=== PATIENT | male | born 1945 | race Caucasian/White ===

== ENCOUNTER 2024-06-10 12:06 | Day surgery (SDC) | payer MEDICARE, OTHER, SELFPAY ==
[2024-06-10] MEDS: LIDOCAINE 2% JELLY 20 ML UR (14:13)
[2024-06-10] MEDS: LIDOCAINE HCL 1% 100 MG/10 ML MDV INJ ×2 (14:15→14:30)
[2024-06-10] MEDS: BACITRACIN OINTMENT 28.4 GM TUBE 1 APPLIC TOPICAL (14:44)
--- NOTE | 2024-06-10 14:51 | P.URON_ITS ---
Urology Surgery Operative Note Operative Note Procedure Date: 06/10/24 Time Out Performed: yes Pre-op Diagnosis: 1. Elevated PSA 2. Abnormal MRI Post-op Diagnosis: same as pre-op Procedures performed: 1. MRI fusion prostate biopsy, transperineal approach 2. Ultrasound for needle prostate biopsy, transperineal approach 3. Transrectal ultrasound of prostate and seminal vesicles 4. Nerve block of prostate Anesthesia: local Primary Surgeon: Melany Underwood Complications: none Estimated blood loss (mL): 1 Findings: Dilated SVs. R peripheral zone mid-apex faint hypoechoic area - targeted. JOS benign. 74 g prostate volume from MRI fusion marking Specimens: 1. Right posterior medial (2 cores) 2. Right posterior lateral (2 cores) 3. Right base (2 cores) 4. Right anterior medial (2 cores) 5. Right anterior lateral (2 cores) 6. Left posterior medial (2 cores) 7. Left posterior lateral (2 cores) 8. Left base (2 cores) 9. Left anterior medial (2 cores) 10. Left anterior lateral (2 cores) 11. YANELIS - right peripheral zone mid-apex (4 cores) Indications for Procedures: 79 year old male with elevated PSA 8.5, 16.5% free on 03/05/24. MP-MRI prostate 05/19/24 showed PIRADS 5 lesion at right peripheral zone, mid-apex. Prostate volume 97 ml. After discussion of risks/benefits of management options and biopsy approaches, he elected to proceed with MRI fusion transperineal prostate biopsy under local. Risks were discussed to include but not limited to bleeding, pain, infection, damage to surrounding structures, hematuria, difficulty urinating, ecchymosis, swelling, injury from positioning, and need for additional procedures. Detailed description of Procedure: After informed consent was obtained, the patient was brought to the operating suite and transferred onto the operating table in supine position. Sequential compression devices were placed on bilateral lower extremities. He received the appropriate dose of preoperative oral antibiotics. He was positioned in the dorsal lithotomy position with scrotum secured out of the perineum with tape, and the appropriate pressure points padded, prepped and draped in the usual fashion for this procedure. An operative timeout was performed confirming the patient's identity, procedure and safety checks. A digital rectal exam was performed noting findings as above. The [employer] MRI fusion biopsy system was set up over the patient's pelvis for transperineal approach of prostate biopsy. Lidocaine gel was inserted per rectum. A well lubricated biplane transrectal ultrasound probe was inserted into the rectum and the prostate was aligned. The gland was visualized fully in axial and sagittal views to allow for identification of anatomy and location of the urethra as noted in findings. The skin followed by periprostatic local anesthetic lidocaine 1% was delivered for periop pain control. The Precision Point device was placed on the ultrasound probe for transperineal approach. After rendering of real-time images with the preoperative MRI prostate, the Optisort fusion biopsy system was used to target the region of interest. Four core needle biopsies were obtained from the region of interest. Thereafter two biopsies were obtained in a systematic fashion from 10 regions of the prostate including the medial and lateral aspects of the anterior and posterior prostate, as well as base of the right and left lobes. The ultrasound probe was removed and the perineum was cleaned, adequate hemostasis achieved. Wound was dressed with antibiotic ointment, fluffs and scrotal support. The patient was sent to PACU in stable condition. Plan: Void prior to discharge home. Follow up in 1-2 weeks for pathology review. Other Provider present: No Post Operative care instructions: see discharge instructions
[2024-06-10] MEDS: LACTATED RINGER'S SOLUTION 1,000 ML 50 ML IV (15:05)
--- NOTE | 2024-06-10 15:12 | PC.NURSE ---
1447 PT RETURNED FROM LOCAL PROCEDURE. PT WAS BRADYCARDIC DURING PROCEDURE. NEEDED A URINAL. VOIDED 300 ML DARK YELLOW URINE. STARTED FEELING LIGHTHEADED. 1500 BP 76/52 P38 R 16 SAO2 96% ROOM AIR. IV STARTED IN LEFT HAND WITH #20 G CATHETER. LR HUNG AT WIDE OPEN. DR. GOODWIN NOTIFIED. Leatha JARRETT RN
--- NOTE | 2024-06-10 15:37 | PC.NURSE ---
1535 PT FEELING MUCH BETTER. VS ARE STABLE. IV DC'D. PT DISCHARGED TO HOME. Leatha JARRETT RN
== END 2024-06-10 15:35 | disposition home or self-care (01) ==
PROVIDERS: PCP Family Medicine; Visit Provider Urology
PROC: (CPT 55700; principal; 2024-06-10 13:05)
DX: C61 Malignant neoplasm of prostate (principal); I25.10 Atherosclerotic heart disease of native coronary artery without angina pectoris; I10 Essential (primary) hypertension; K21.9 Gastro-esophageal reflux disease without esophagitis; E78.5 Hyperlipidemia, unspecified
CPT/HCPCS: 55700